=== PATIENT | female | born 1995 | race Caucasian/White ===

== ENCOUNTER 2022-08-08 13:19 | Emergency (ER) | payer OTHER ==
[~2022-08-08] VITALS: Ht 162.6 cm; Wt 54.4 kg
--- NOTE | 2022-08-08 13:32 | NUR ---
TO ER BED 3, C/O LACERATION,LEFT FA SUSTAINED WHILE CUTTING MANGOES AT HOME, AAOX4, BREATHING EVEN AND NON LABORED, AWAITING MD ORDERS
[2022-08-08] MEDS ORDERED: ACETAMINOPHEN 325 MG TABLET PO ONE (14:00)
[2022-08-08] MEDS ORDERED: TDAP [DIPH/PERTUSSIS/TET] 0.5 ML VIAL IM ONE ×2 (14:00→14:25)
[2022-08-08] MEDS ORDERED: LIDOCAINE 1%-EPI 1:100,000 20 ML VIAL ONE (14:12)
[2022-08-08] MEDS ORDERED: ACETAMINOPHEN 325 MG TABLET ONE (14:25)
--- NOTE | 2022-08-08 15:25 | NUR ---
DR KWOK AT BEDSIDE FOR LAC REPAIR
[2022-08-08 15:40] VITALS: BP 114/71
== END 2022-08-08 15:40 | disposition home or self-care (01) ==
LOC: ER 13:25
DX: S51.812A Laceration without foreign body of left forearm, initial encounter (principal); W26.0XXA Contact with knife, initial encounter; Y93.89 Activity, other specified; Y92.89 Other specified places as the place of occurrence of the external cause; Y99.8 Other external cause status
CPT/HCPCS: 99283; 12002; 90471; 90715; A6403 ×3; J3490